=== PATIENT | male | born 1970 | race Caucasian/White ===

== ENCOUNTER 2025-04-11 00:22 | Day surgery (SDC) | payer BC, SELFPAY ==
[2025-03-22 14:47] VITALS: BMI 29.4
--- OUTSIDE RECORDS SUMMARY | 2025-04-11 00:25 | XMS_ITS | Clinical Summary ---
Author Organization [facility] Address [address] [place] [address] Care Team Providers Care Managing Manager Name Role Phone Johnnie Toribio MD Unavailable [phone] Martina Shetty MD Unavailable [phone] Source Comments [facility],non-owned Affiliates and Associated Physician Practices is amultiple site organization consisting of ambulatory clinics and hospital sitesin [place], [place], [place] and [place]. This disclosure is being madepursuant to the Care Everywhere program and may not contain all information available regarding this patient. Last updated 18.[facility] Allergies No known active allergies Medications * Be aware that medications may not be up to date on this document. Alwaysverify current medications with the patient. famotidine (PEPCID) 20 MG tablet Take 1 Tab by mouth at bedtime. 06/09/2013 Active buPROPion SR 12hr (WELLBUTRIN-SR) 150 MG tablet 1 Tab once daily. 30 Tab 1 06/09/2013 Active testosterone cypionate (DEPO-TESTOTERO NE) 200 MG/ML injection Inject 400 mg into muscle every 28 days. 08/30/2013 Active lovastatin (MEVACOR) 40 MG tablet Take 1 Tab by mouth at bedtime 30 Tab 0 06/19/2015 Active losartan (COZAAR) 100 MG tablet Take 1 Tab by mouth once daily 30 Tab 0 06/19/2015 Active Active Problems Problem Noted Date Diagnosed Date Essential hypertension, benign 06/09/2013 Testosterone deficiency 04/24/2013 Overview (04/24/2013): 335 ng on 04/24/13 Elevated ALT measurement 04/24/2013 Routine general medical exam ination at a health care facility 04/23/2013 Mixed hyperlipidemia 04/23/2013 Organic impotence 04/23/2013 Insomnia 04/23/2013 GERD (gastroesophageal reflux disease) 4 Migraine without aura 04/23/2013 Family History Medical History Relation Name Comments Hypercholesterolemia Father Diabetes Maternal Aunt Hypercholesterolemia Mother Hypertension Mother Alcohol abuse Other Cancer - Colon Other Heart Disease Other Relation Name Status Comments Father Maternal Aunt Mother Other Social History Tobacco Use Types Packs/Day Years Used Date Smoking Tobacco: Never Smokeless Tobacco: Current Chew Tobacco Cessation:Counseling Given: Yes Alcohol Use Standard Drinks/Week Comments Yes 0 (1 standard drink = 0.6 oz pur e alcohol) Sex and Gender Information Value Date Recorded Sex Assigned at Not on file Legal Sex Male 6:42 AM [employer] Gender Identity Not on file Sexual Orientation Not on file Last Filed Vital Signs Vital Sign Reading Time Taken Comments Blood Pressure 124/84 07/16/2013 11:36 AM CDT Pulse 72 07/16/2013 11:36 AM CDT Temperature 36.3 C (97.4 F) 04/23/2013 1:13 PM [employer] Respiratory Rate 12 07/16/2013 11:36 AM CDT Oxygen Saturation - - Inhaled Oxygen Concentration - - Weight 94.8 kg (209 lb) 07/16/2013 11:36 AM CDT Height 182.9 cm (6') 07/16/2013 11:36 AM CDT Body Mass Index 28.35 07/16/2013 11:36 AM CDT Plan of Treatment Health Maintenance Due Date Last Done Comments COLOGUARD (AGES 45-75) - COL ON CA SCREENING 1969 COLON MONITORING 1969 COLONOSCOPY - COLON CA SCREENING 1969 CT COLONOGRAPHY - COLON CA SCREENING 1969 Colorectal Cancer Screening 1969 FIT - COLON CA SCREENING 1969 FLEX SIG - COLON CA SCREENING 1969 HIV SCREENING 1984 DTAP/TDAP/TD VACCINES (1 - Tdap) 1988 HEPATITIS B VACCINE (1 of 3 - 19+ 3-dose series) 1988 PNEUMOCOCCAL VACCINE 50+ (1 of 1 - PCV) 2019 ZOSTER VACCINE (1 of 2) 2019 DEPRESSION SCREENING 04/21/2024 COVID-19 VACCINE (1 - 2024-2 6 season) 2024 INFLUENZA VACCINE (#1) 2024 HEPATITIS C SCREENING Completed 07/15/2013 HIB VACCINE Aged Out No longer eligi ble based on patient's age to complete this topic HPV VACCINE Aged Out No longer eligi ble based on patient's age to complete this topic MENINGOCOCCAL (Group B) VACC INE SHARED DECISION-MAKING Aged Out No longer eligibl e based on patient's age to complete this topic MENINGOCOCCAL GROUPS A/C/Y/W VACCINE Aged Out No longer eligible b ased on patient's age to complete this topic Procedures Procedure Name Priority Date/Time Associated Diagnosis Comments HEPATITIS SCREEN ACUTE Routine 07/15/2013 9:14 AM CDT Elevated liver enzymes from Last 3 Months or Most Recently Relevant to Health Maintenance Results * HEPATITIS SCREEN ACUTE (07/15/2013 9:14 AM CDT) Hepatitis A Virus Antibody IgM Negative Negative [facility] ACCOUNT BILL Hepatitis B Virus Surface Antigen Negative Negative [facility] ACCOUNT BILL Hepatitis B Core Virus Antibody IgM Negative Negative [facility] ACCOUNT BILL Hepatitis C Antibody <0.1 0.0 - 0.9 s/co ratio [facility] ACCOUNT BILL Comment: Negative: < 0.8 Indeterminate 0.8 - 0.9 Positive: > 0.9 . In order to reduce the incidence of a false positive result, the CDC recommends that all s/co ratios between 1.0 and 10.9 be confirmed by a more specific supplemental or PCR testing. [facility] offers HCV Ab w/Reflex to Verification test #[id number]. Blood specimen (specimen) BLOOD SPECIMEN / Unknown 07/15/2013 9:14 AM CDT 07/15/2013 2:43 PM CDT Narrative Resulting Agency Comment [facility] [address] [id number] Darron Ford III, MD LAB - CHEMISTRY ORDERABLES Final Result [facility] ACCOUNT BILL [address] [place] [address] from Last 3 Months or Most Recently Relevant to Health Maintenance Insurance [facility] Care Teams Managing Manager Relationship Specialty Start Date End Date Johnnie Toribio MD [address] [place] [address] Gastroenterology 04/23/13 Martina Shetty MD [address] [place] [id number] General Surgery 04/23/13
[2025-04-11 12:55] VITALS: BP 128/82; PULSE 66; RESP 16; TEMP 36.1; O2SAT 100
[2025-04-11 12:56] VITALS: BMI 28.5
[2025-04-11] MEDS: LACTATED RINGERS 1,000 ML 150 ML IV CONT (13:05)
--- NOTE | 2025-04-11 13:26 | PM.HPGS ---
History of Present Illness History of Present Illness Consent: Risks, benefits, and alternatives have been discussed and questions answered. Patient agrees to proceed with procedure. Chief complaint: Screening Narrative: Xavi Salas is a 54 year old male here for colonoscopy, last one about 4 years ago, father had colon cancer Review of Systems Review of Systems: All systems reviewed & are unremarkable except as noted in HPI and below PMFSH Past Medical History Medical History (Updated 04/11/25 @ 13:26 by Ramos Ramon MD) Family history of colon cancer Prediabetes High cholesterol Surgical History Surgical History H/O arthroscopy of right knee H/O umbilical hernia repair Family History Family History Father Carcinoma of colon High cholesterol Pancreatic cancer Mother High cholesterol Sibling High cholesterol Social History Social History Smoking status: Never smoker Smokeless tobacco user: chewing tobacco Alcohol intake: current Drinks per week: 3 Alcohol use details: Beer Substance use: never Substance use type: does not use Living arrangements: with family Spiritual care concerns: No Meds Home Medications and Allergies Home Medications ?Medication ?Instructions ?Recorded ?Confirmed ?Type atorvastatin 10 mg tablet (Lipitor) 10 mg PO DAILY #90 tabs 02/10/25 04/11/25 Rx allopurinol 100 mg tablet 100 mg PO DAILY #90 tabs 03/22/25 04/11/25 Rx Allergies Allergy/AdvReac Type Severity Reaction Status Date / Time No Known Allergies Allergy Mild Verified 04/11/25 12:53 Vital Signs Vital Signs - 24 hr 04/11/25 12:55 Temperature 97 F L Pulse Rate 66 Respiratory Rate 16 Blood Pressure 128/82 Pulse Oximetry 100 Oxygen Delivery Room Air Exam Const: General: comfortable and no acute distress HENMT: Face/Nose/Sinus: Normal nares present Eyes: General: appearance normal, both eyes and all related structures Neck: Neck: no JVD Resp: Auscultation: clear to auscultation bilaterally Cardio: Rate: regular rate Rhythm: regular rhythm GI: Inspection: non-distended GI Palp: Yes Soft to palpation Skin: General skin exam: normal color Extrem: General: normal to inspection Psych: Mental Status: mental status grossly normal Assessment and Plan Assessment and plan (1) Family history of colon cancer: Code(s): Z80.0 - Family history of malignant neoplasm of digestive organs Status: Acute Assessment and Plan: colonoscopy
--- NOTE | 2025-04-11 13:26 | WPDANESEPPF ---
Anes - Initial Pre Proc Eval Procedure: Operation Date: 04/11/25 14:00 Proposed Procedures p Screening Colonoscopy - Ramos Ramon MD Date/Time: 04/11/25 13:26 Surgeon: Ramos Ramon MD Pre Op Diagnosis: Screening Patient Data Age: 54 Gender: M Height: 1.83 m Weight: 95.6 kg Last Vital Signs Temp 36.1 C L 04/11/25 12:55 Pulse 66 04/11/25 12:55 Resp 16 04/11/25 12:55 BP 128/82 04/11/25 12:55 Pulse Ox 100 04/11/25 12:55 O2 Del Method Room Air 04/11/25 12:55 Allergies Allergy/AdvReac Type Severity Reaction Status Date / Time No Known Allergies Allergy Mild Verified 04/11/25 12:53 Home Medications ?Medication ?Instructions ?Recorded ?Confirmed ?Type atorvastatin 10 mg tablet (Lipitor) 10 mg PO DAILY #90 tabs 02/10/25 04/11/25 Rx allopurinol 100 mg tablet 100 mg PO DAILY #90 tabs 03/22/25 04/11/25 Rx Patient hx anesthesia problems: none Family hx anesthesia problems: none Results Review: All pre-operative results and documents have been reviewed as part of the pre-operative evaluation. [facility] Past Medical History Medical History Prediabetes High cholesterol Surgical History Surgical History H/O arthroscopy of right knee H/O umbilical hernia repair Family History Family History Father Carcinoma of colon High cholesterol Pancreatic cancer Mother High cholesterol Sibling High cholesterol Social History Social History Smoking status: Never smoker Smokeless tobacco user: chewing tobacco Alcohol intake: current Drinks per week: 3 Alcohol use details: Beer Substance use: never Substance use type: does not use Living arrangements: with family Spiritual care concerns: No Anes - Eval Final PreProcedure Day of Procedure 04/11/25 13:26 Patient weight: overweight Heart: regular rate and rhythm Lungs: clear to auscultation Airway: Mallampati scale class II Neurological: alert and oriented Last oral intake: >/= 8 hours ASA classification: II Emergent: no Anesthetic plan: proceed Anesthesia type and monitoring: general GIVS and standard monitoring Results Review: All pre-operative results and documents have been reviewed as part of the pre-operative evaluation. Informed Consent: The patient's anesthetic plan and its attendant risks and benefits were discussed with the patient/family/POA. Questions were solicited and answers provided to the satisfaction of the patient/family/POA.
[2025-04-11 13:46] VITALS: BP 131/81; PULSE 67; RESP 16; O2SAT 94
--- NOTE | 2025-04-11 13:52 | S_PTH ---
PATIENT: Xavi Salas LOC: [facility]#:[id number] AGE/SX: 54/M ROOM: RE04/11/[address]: Ramos Ramon MD : 1970 BED: DIS: 04/11/2025 SPEC #: [id number] RECD: 04/11/25 14:28 STATUS: VOLODYMYR RERené #: [id number] HELGA: 04/11/25 13:[address]: Ramos Ramon DEPT: [facility] Surgical RECD BY: Savannah Cassidy ENTERED: 04/11/25 14:28 SP TYPE: Surgical OTHR DR: Lizzy Savage APRN Tissues: A - Colon Polypectomy Procedures: Hematoxylin and Eosin Stain Gross and Microscopic Level 4
[2025-04-11 13:56] VITALS: BP 121/72; PULSE 60; RESP 11; O2SAT 96
[2025-04-11 14:06] VITALS: BP 127/85; PULSE 69; RESP 17; O2SAT 98
== END 2025-04-11 14:17 | disposition home or self-care (01) ==
PROVIDERS: PCP Nurse Practitioner Family; Referring Provider Nurse Practitioner Family; Visit Provider Internal Medicine Gastroenterology
PROC: 0DJD8ZZ Inspection of Lower Intestinal Tract, Via Natural or Artificial Opening Endoscopic (ICD-10-PCS; CPT 45378; principal; 2025-04-11 14:00)
DX: Z12.11 Encounter for screening for malignant neoplasm of colon (principal); D12.3 Benign neoplasm of transverse colon; K57.30 Diverticulosis of large intestine without perforation or abscess without bleeding; Z80.0 Family history of malignant neoplasm of digestive organs; F17.220 Nicotine dependence, chewing tobacco, uncomplicated
CPT/HCPCS: 45385; 45381; 88305; J2704; J7120